=== PATIENT | male | born 1995 | race Caucasian/White ===

== ENCOUNTER 2017-04-23 17:55 | Emergency (ER) | payer MEDICAID, OTHER ==
[~2017-04-23] VITALS: Ht 165.1 cm; Wt 59.0 kg
[2017-04-23 18:21] VITALS: BP 109/56
--- NOTE | 2017-04-23 18:25 | NUR ---
Patient to bed 06.
--- NOTE | 2017-04-23 18:34 | NUR ---
PT PRESENTS TO ER FOR EVALUATION OF RIGHT KNEE/LEG INFECTED ABRASSION. REDNESS AND SISCHARGES NOTED;PT STATES HE USED TO HAVE RINGWORMS . DENIES PAIN BUT WOUND IS ITCHY;DENIES N/V/D; SKIN IS PINK/WARM/DRY; AAOX4 WITH EVEN AND STEADY GAIT; LUNGS CLEAR BL; HR EVEN AND REGULAR; PT DENIES ANY FEVER, CP, SOB, OR COUGH AT THIS TIME; PATIENT STATES PAIN OF 0/10 AT THIS TIME;PATIENT POSITIONED FOR COMFORT; HOB ELEVATED; BEDRAILS UP X2; BED DOWN. ER MD MADE AWARE OF PT STATUS.
--- NOTE | 2017-04-23 19:14 | NUR ---
Pt report given to DENNY SANTIAGO. Transfer of care at this time.
--- NOTE | 2017-04-23 19:19 | NUR ---
PT MOVED TO BED 12
--- NOTE | 2017-04-23 19:35 | NUR ---
ER MD WAY EVALUATING PATIENT AT BEDSIDE
[2017-04-23 20:37] VITALS: BP 109/56
--- NOTE | 2017-04-23 20:37 | NUR ---
Patient discharged with v/s stable. Written and verbal after care instructions given and explained. Patient alert, oriented and verbalized understanding of instructions. Ambulatory with steady gait. All questions addressed prior to discharge. ID band removed. Patient advised to follow up with PMD. Rx of Keflex 500mg and [facility] hydrocortisone 1% topical cream given. Patient educated on indication of medication including possible reaction and side effects. Opportunity to ask questions provided and answered.
== END 2017-04-23 20:37 | disposition home or self-care (01) ==
LOC: MED 17:55
DX: L25.9 Unspecified contact dermatitis, unspecified cause (principal)
CPT/HCPCS: 73562; 99284